=== PATIENT | female | born 1965 ===

== ENCOUNTER 2020-12-06 07:27 | Outpatient (CLI) | payer OTHER | END 2020-12-06 07:44 | disposition home or self-care (01) | LOC: RAD 07:27 | PROVIDERS: ATTEND Internal Medicine Gastroenterology | DX: M99.01 Segmental and somatic dysfunction of cervical region (principal); M99.02 Segmental and somatic dysfunction of thoracic region; M99.03 Segmental and somatic dysfunction of lumbar region; M99.04 Segmental and somatic dysfunction of sacral region; M99.05 Segmental and somatic dysfunction of pelvic region; R16.0 Hepatomegaly, not elsewhere classified; K76.0 Fatty (change of) liver, not elsewhere classified; E04.8 Other specified nontoxic goiter ==

== ENCOUNTER 2024-05-11 11:21 | Outpatient (CLI) | payer OTHER | END 2024-05-11 11:29 | disposition home or self-care (01) | LOC: RAD 11:21 | PROVIDERS: ATTEND Obstetrics & Gynecology | DX: N95.0 Postmenopausal bleeding (principal); D25.1 Intramural leiomyoma of uterus; N84.0 Polyp of corpus uteri ==

== ENCOUNTER 2024-06-04 08:46 | Day surgery (SDC) | payer OTHER ==
[2024-06-04] MEDS ORDERED: POVIDONE-IODINE 118 ML BOTT TOP ONE (15:00)
[2024-06-04] MEDS ORDERED: METRONIDAZOLE/SODIUM CHLORIDE 500 MG/100 ML PIGGYBACK IV ONE (15:00)
== END 2024-06-04 21:30 | disposition home or self-care (01) ==
LOC: CIR.AMB 08:46
PROVIDERS: ATTEND Obstetrics & Gynecology
DX: N84.1 Polyp of cervix uteri (principal)